=== PATIENT | female | born 2000 | race Caucasian/White ===

== ENCOUNTER 2022-03-09 12:03 | Observation (INO) | payer OTHER ==
[2022-03-09] MEDS ORDERED: Lidocaine 1% PF 5 ML VIAL ONE (12:24)
[2022-03-09] MEDS ORDERED: Ketorolac Tromethamine 30 MG/ML VIAL ONE (12:45)
[2022-03-09] MEDS ORDERED: CEFAZOLIN 1 GM VIAL ONE (12:45)
[2022-03-09] MEDS ORDERED: Morphine 4 MG/ML VIAL ONE (12:45)
[2022-03-09] MEDS ORDERED: Ondansetron PF 4 MG/2 ML Vial ONE (12:45)
[2022-03-09] MEDS ORDERED: Midazolam HCl 2 mg/2 ml Vial ONE (13:20)
[2022-03-09] MEDS ORDERED: TETANUS, DIPHTHERIA TOX,ADULT (TDVAX) 0.5 ML VIAL IM ONE (16:45)
[2022-03-09] MEDS ORDERED: hydrALAZINE 20 MG/ML VIAL SLOW IVP PRN (16:45)
[2022-03-09] MEDS ORDERED: Ondansetron PF 4 MG/2 ML Vial IVP PRN (16:45)
[2022-03-09] MEDS: Sodium Chloride 0.9% 1,000 ML IV SCH ×2 (18:18→23:31)
[2022-03-09] MEDS ORDERED: Acetaminophen 325 MG TAB PO SCH ×2 (18:30→23:59)
[2022-03-09] MEDS ORDERED: Acetaminophen 500 MG TAB PO SCH (18:45)
[2022-03-09] MEDS ORDERED: traMADol HCl 50 MG TAB PO PRN (19:38)
[2022-03-09] MEDS ORDERED: Ibuprofen 200 MG TAB PO PRN (19:38)
[2022-03-09 20:56] VITALS: BMI 24.4
[2022-03-09] MEDS: traMADol HCl 50 MG TAB PO SCH (23:28)
[2022-03-09] MEDS: Acetaminophen 500 MG TAB PO SCH (23:28)
[2022-03-10] MEDS: Acetaminophen 500 MG TAB PO SCH ×2 (05:09→11:05)
[2022-03-10] MEDS: traMADol HCl 50 MG TAB PO SCH ×2 (05:10→11:05)
[2022-03-10] MEDS: Sodium Chloride 0.9% 1,000 ML IV SCH (05:11)
[2022-03-10 05:34] LABS: SARS-CoV-2 NAA Rapid Test Not Detected (NotDetected)
[2022-03-10 06:22] LABS: #Basophils 0.1 thou/uL (0.0-0.2); #Eosinphils 0.1 thou/uL (0.0-0.7); #Lymphocytes 2.4 thou/uL (1.20-3.40); #Monocytes 0.8 thou/uL (0.11-0.59); #Neutrophils 2.8 thou/uL (1.40-6.50); %Basophils 0.8 % (0.0-1.0); %Eosinophils 1.2 % (0.0-10.0); %Lymphocytes 38.9 % (28.0-48.0); %Monocytes 13.3 % (0.0-4.0); %Neutrophils 45.8 % (31.0-61.0); Hemoglobin 10.9 g/dL (12.0-16.0); Mean Corpuscular HGB CONC 31.1 g/dL (32.0-36.0); Mean Corpuscular Hemoglobin 29.3 pg (25.0-35.0); Mean Corpuscular Volume 94.2 fL (78.0-98.0); Mean Platelet Volume 7.9 fL (7.4-10.4); Platelet Count 284 thou/uL (130-400); RBC Distribution Width 11.5 % (11.5-14.5); Red Blood Cell (RBC) Count 3.73 mill/uL (4.00-5.20); White Blood Cell (WBC) Count 6.2 thou/uL (4.8-10.8)
[2022-03-10 06:40] LABS: Anion Gap 9 mmol/L (10-20); BUN (Urea Nitrogen) 9 mg/dL (8.4-21.0); Calc. Creatinine Clearance 151 mL/min (70-130); Calcium 8.4 mg/dL (7.8-10.44); Carbon Dioxide 24 mmol/L (22-29); Chloride 109 mmol/L (98-107); Estimated GFR 118; Glucose 93 mg/dL (70-105); Magnesium 1.8 mg/dL (1.7-2.2); Sodium 138 mmol/L (136-145)
[2022-03-10] MEDS ORDERED: PHOS-NAK 1 PKT PACK PO SCH (09:00)
[2022-03-10] MEDS ORDERED: Magnesium 2 GM/50 ML(in water) 2 GM in Premix Bag 1 BAG IVPB SCH (09:00)
[2022-03-10 13:33] VITALS: BP 119/67; TEMP 98.2
[2022-03-10] MEDS ORDERED: Bacitracin 1 PK TOP SCH (21:00)
== END 2022-03-10 14:30 | disposition home or self-care (01) ==
LOC: ERS 12:03 → EDBD 12:03 → SURG A 15:43
PROVIDERS: ADMIT Specialist; ATTEND Specialist
DX: E86.0 Dehydration (principal); R55 Syncope and collapse; S06.0X9A Concussion with loss of consciousness of unspecified duration, initial encounter; S01.01XA Laceration without foreign body of scalp, initial encounter; Z79.899 Other long term (current) drug therapy; Z20.822 Contact with and (suspected) exposure to COVID-19; V00.831A Fall from motorized mobility scooter, initial encounter; W18.30XA Fall on same level, unspecified, initial encounter; Y92.481 Parking lot as the place of occurrence of the external cause
CPT/HCPCS: 12014; 36415; 70450; 70486; 72125; 80048; 83735; 84100; 85025; 96361; 96374; 96375; 97139; G0378; G0390; J0690; J1885; J2250; J2270; J2405; J3475; J7050; U0002